=== PATIENT | female | born 1940 | race Caucasian/White ===

== ENCOUNTER → 2019-12-10 | Day surgery (SDC) | payer MEDICARE, BC ==
[2019-12-05 11:10] LABS: BASOPHILS # (AUTO) 0.1 (0.0-0.1); BASOPHILS % 1.3 % (0.0-1.0); EOSINOPHILS # (AUTO) 0.2 (0.0-0.4); EOSINOPHILS % 4.8 % (0.0-6.0); HEMATOCRIT 37.7 % (34.2-44.1); HEMOGLOBIN 12.5 g/dL (12.0-16.0); LYMPHOCYTES # (AUTO) 1.9 (1.0-3.2); LYMPHOCYTES % 42.6 % (18.0-39.1); MEAN CORPUSCULAR HEMOGLOBIN 30.7 pg (28-32); MEAN CORPUSCULAR HGB CONC 33.2 g/dL (31-35); MEAN CORPUSCULAR VOLUME 92.6 fL (81-99); MONOCYTES # (AUTO) 0.6 (0.2-0.8); MONOCYTES % 13.4 % (4.4-11.3); NEUTROPHILS # (AUTO) 1.7 (2.1-6.9); NEUTROPHILS % 37.9 % (38.7-80.0); PLATELET COUNT 166 x10e3/uL (140-360); RED BLOOD COUNT 4.07 x10e6/uL (3.6-5.1); RED CELL DISTRIBUTION WIDTH 13.6 % (11.7-14.4)
--- NOTE | 2019-12-05 11:54 | Diagnostic Imaging Report ---
EXAMINATION: CHEST 2 VIEWS INDICATION: Right carpal tunnel syndrome. Preop ^PREOP ^[id number] ^[id number] COMPARISON: None FINDINGS: TUBES and LINES: None. LUNGS: Lungs are well inflated. Chronic appearing change in the lungs. There is no evidence of pneumonia or pulmonary edema. PLEURA: No pleural effusion or pneumothorax. HEART AND MEDIASTINUM: The cardiomediastinal silhouette is unremarkable. BONES AND SOFT TISSUES: No acute osseous lesion. Soft tissues are unremarkable. UPPER ABDOMEN: No free air under the diaphragm. IMPRESSION: No acute thoracic abnormality. Signed by: Dr. Shelton Abdullahi M.D. on 12/05/2019 11:52 AM
[~2019-12-10] MED LIST: ACETAMINOPHEN 1000 MG/100 ML IV ONE; ADVIL100 MG PO; ALENDRONATE SOD70 MG PO; BUPIVACAINE HCL 0.5% INJ 30 ML VIAL INJ ONE; CEFAZOLIN SOD 1 GM/NS 50ML 50 ML IV ONE; CENTRUM SILVER PO; CITRACAL PO; DEXAMETHASONE SOD PHOS INJ 4 MG/ML VIAL ONE; ELIQUIS5 MG PO; FAMOTIDINE20 MG PO; GABAPENTIN100 MG PO; HYDROXYCHLOROQ200 MG PO; KETOROLAC TROMETHAMINE 30 MG/ML VIAL ONE; LEFLUNOMIDE20 MG PO; LIDOCAINE HCL 2% LOCAL INJ 5 ML SDV VIAL INJ ONE; METOPROLOL SUCC50 MG PO; MUPIROCIN 2% OINT 22 GM TUBE ONE; ONDANSETRON HCL INJ 2MG/ML 2ML 2 MG/ML VIAL ONE; ONDANSETRON ODT8 MG PEG; PRESERVISION T1 EACH PO; PROPOFOL IV EMULSION 10 MG/ML 20 ML VIAL ONE; SEVOFLURANE INHAL SOLN 250 ML PEN BTL ONE; SYNTHROID50 MCG PO; VESICARE5 MG PO; VIBERZI75 MG PO; VITAMIN D3 PO; [UNRECOGNIZED DRUG - OTHER] PO
--- OUTSIDE RECORDS SUMMARY | 2019-12-10 06:03 | XMS REPORT | Summary of Care ---
Author Author MONDAY NATALIE Herrera Unknown Address Unknown Phone Unavailable Care Team Providers Care Sales Representative Wire Rope Name Role Phone MondayFrederick, NATALIE Unavailable Unavailable MEG ALVES MD Unavailable Unavailable MONDAY NATALIE BEACH Unavailable Unavailable SO CHO MD Unavailable Unavailable Unavailable Unavailable Functional Status Name Dates Details Functional status health issues are not documented Status: Name Dates Details Cognitive status health issues are not documented Status: Problems Name Dates Details Carpal tunnel syndrome, right upper limb (354.0, G56.01) Status: Active 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, 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 Left foot drop (736.79, M21.372) Status: Active Neuropathic pain (729.2, M79.2) Status: Active Medications Name Dates Details PreserVision/Lutein Oral Capsule Active Multi Vitamin/Minerals Oral Tablet * Refills: 0 Active Citracal TABS * Refills: 0 Active Vitamin D 1000 UNIT TABS * Refills: 0 Active Advil 200 MG Oral Tablet * Refills: 0 Active Ondansetron 4 MG Oral Tablet Disintegrating * Refills: 0 Active Viberzi 75 MG Oral Tablet * Refills: 0 Active Hydroxychloroquine Sulfate 200 MG Oral Tablet * Refills: 0 Active Gabapentin 100 MG Oral Capsule TAKE 6 CAPSULE DAILY * Quantity: 180 Refills: 0 MONDAY NATALIE Herrera Active Leflunomide 20 MG Oral Tablet * Refills: 0 Active Metoprolol Succinate ER 100 MG Oral Tablet Extended Release 24 Hour * Refills: 0 Active Eliquis 5 MG Oral Tablet * Refills: 0 Active Synthroid 50 MCG Oral Tablet * Refills: 0 Active Solifenacin Succinate 10 MG Oral Tablet * Refills: 0 Active Famotidine 20 MG Oral Tablet * Refills: 0 Active Alendronate Sodium 70 MG Oral Tablet * Refills: 0 Active Diclofenac Sodium 1 % Transdermal Gel * Refills: 0 Active Centrum TABS * Refills: 0 Active Allergies and Adverse Reactions Name Dates Details codeine (Allergy) Status: Active methotrexate (Allergy) Status: Active morphine (Allergy) Status: Active Past Medical History Name Dates Details History of high cholesterol (V12.29, Z86.39) Status: Resolved History of High triglycerides (272.1, E78.1) Status: Resolved History of hypertension (V12.59, Z86.79) Status: Resolved History of memory loss (V11.9, Z87.898) Status: Resolved History of Migraine headache (346.90, G43.909) Status: Resolved History of neuropathy (V12.49, Z86.69) Status: Resolved History of osteopenia (V13.59, Z87.39) Status: Resolved Procedures Procedure Dates Details [QLH] VITAMIN B12 Date: 04-Dec-2019 [QLH] FOLATE, SERUM Date: 04-Dec-2019 [H] Protein Electrophoresis Date: 04-Dec-2019 History of Carpal tunnel surgery Completed History of Cataract Surgery Completed History of Back Surgery Completed History of Complete Colonoscopy Completed History of Hysterectomy Completed Immunization Name Dates Details Immunizations not documented Family History Name Dates Details Family history of High blood cholesterol level (272.0, E78.00) Comments: Other Status: Active Family history of High triglycerides (272.1, E78.1) Comments: Other Status: Active Family history of malignant neoplasm (V16.9, Z80.9) Comments: Other Status: Active Family history of cardiac disorder (V17.49, Z82.49) Comments: Other Status: Active Family history of migraine headaches (V17.2, Z82.0) Comments: Other Status: Active Family history of epilepsy (V17.2, Z82.0) Comments: Other Status: Active Family history of hypertension (V17.49, Z82.49) Comments: Other Status: Active Social History Name Dates Details - Status: Name Dates Details Never smoked tobacco (finding) Vital Signs Date Test Result Details [id number] Systolic blood pressure 174 mm[Hg] Status: Comments: Location: LUE; Position: Sitting Diastolic blood pressure 75 mm[Hg] Status: Comments: Location: LUE; Position: Sitting Body height 63 in Status: Weight 149.6 lb Status: Body mass index (BMI) [Ratio] 26.5 kg/m2 Status: Body surface area Derived from formula 1.71 m2 Status: Body temperature 96.8 f Status: Comments: Method: Oral Heart Rate 65 /min Status: Comments: Location: R Brachial Artery; Results Date Description Value Details Results not documented Plan of Care Name Dates Details Planned Observations Planned Goals not documented Planned Encounters Appointment; NATALIE OCAMPO M.D. On: 01-Jun-2020 11:30 Interventions Provided Medication Changes* Gabapentin 100 MG Oral Capsule - Renew Labs/Procedures/Imaging* [H] Protein Electrophoresis; To Be Done: 04 Dec 2019 * [QLH] FOLATE, SERUM; To Be Done: 04 Dec 2019 * [QLH] VITAMIN B12; To Be Done: 04 Dec 2019 Instructions Name Dates Details Instructions not documented Encounters Appointment; NATALIE OCAMPO M.D. Encounter Diagnosis: Problem not documented On: 23-Oct-2019 11:00 Appointment; RONNIE BARBA M.D. Encounter Diagnosis: Problem not documented On: 23-Oct-2019 13:00 Appointment; NATALIE OCAMPO M.D. Encounter Diagnosis: Problem not documented On: 04-Dec-2019 12:30
--- OUTSIDE RECORDS SUMMARY | 2019-12-10 06:03 | XMS REPORT | Summary of Care ---
Author Author MONDAY Sharon, NATALIE Manriquez Unknown Address Unknown Phone Unavailable Care Team Providers Care Family Service Caseworker Name Role Phone Kelly Rivera M.A. Unavailable Unavailable MONDAY Sharon, NATALIE Unavailable Unavailable [place], MEG MCKAY Unavailable Unavailable MONDAY NATALIE BEACH Unavailable Unavailable [place], SO Mazariegos Unavailable Unavailable Unavailable Unavailable Functional Status Name [...] MG Oral Tablet * Refills: 0 Active Meclizine HCl TABS * Refills: 0 Active Ondansetron 4 MG Oral Tablet Disintegrating * Refills: 0 Active Tylenol with Codeine #3 300-30 MG Oral Tablet * Refills: 0 Active Viberzi 75 MG Oral Tablet * Refills: 0 Active Oxybutynin Chloride 5 MG Oral Tablet * Refills: 0 Active Eliquis 2.5 MG Oral Tablet * Refills: 0 Active Synthroid 112 MCG Oral Tablet * Refills: 0 Active Hydroxychloroquine Sulfate 200 MG Oral Tablet * Refills: 0 Active predniSONE 20 MG Oral Tablet * Refills: 0 Active Gabapentin 100 MG Oral Capsule TAKE 6 CAPSULE DAILY * Quantity: 180 Refills: 0 Monday.NATALIE Bryant Active Omeprazole 40 MG Oral Capsule Delayed Release * Refills: 0 Active Leflunomide 20 MG Oral Tablet * Refills: 0 Active Metoprolol Succinate ER 100 MG Oral Tablet Extended Release 24 Hour * Refills: 0 Active Allergies and Adverse [...] Z87.39) Status: Resolved Procedures Procedure Dates Details History of Carpal tunnel surgery Completed History [...] Details - Status: Name Dates Details Never smoker Vital Signs Date Test Result Details [id number] BP Systolic 151 mm[Hg] Status: Comments: Location: LLE; Position: Sitting BP Diastolic 80 mm[Hg] Status: Comments: Location: LLE; Position: Sitting Height 63 in Status: Weight 152 lb Status: Body Mass Index Calculated 26.93 kg/m2 Status: Body Surface Area Calculated 1.72 m2 Status: Temperature 97.7 f Status: Heart Rate 65 /min Status: Results Date Description Value Details Results not documented Plan of Care Name Dates Details Planned Observations Planned Goals not documented Planned Encounters Orthopedics Referral Appointment; NATALIE OCAMPO M.D. On: 04-Dec-2019 12:30 Interventions Provided Supplies* Brace; To Be Done: 25 Oct 2019 Instructions Name Dates Details Instructions not documented Encounters Appointment; NATALIE OCAMPO M.D. Encounter Diagnosis: Problem not documented On: 23-Oct-2019 11:00 Appointment; RONNIE BARBA M.D. Encounter Diagnosis: Problem not documented On: 23-Oct-2019 13:00
--- OUTSIDE RECORDS SUMMARY | 2019-12-10 06:03 | XMS REPORT | Summary of Care ---
Author Author Kelly Rivera M.A. Organization Unknown Address Unknown Phone Unavailable Care Team Providers Care Wall Insulation Sprayer Name Role Phone Kelly Rivera M.A. Unavailable Unavailable MONDAY M.Manny, NATALIE Unavailable Unavailable [place], MEG MCKAY [...] DAILY * Quantity: 180 Refills: 0 MONDAY M.D., NATALIE Active Omeprazole 40 MG Oral Capsule Delayed [...] smoker Vital Signs Date Test Result Details :43 BP Systolic 151 mm[Hg] Status: Comments: Location: [...] Appointment; NATALIE OCAMPO M.D. On: 04-Dec-2019 12:30 Instructions Name Dates Details Instructions not documented Encounters Appointment; NATALIE OCAMPO M.D. Encounter Diagnosis: Problem not documented On: 23-Oct-2019 11:00 Appointment; RONNIE BARBA M.D. Encounter Diagnosis: Problem not documented On: 23-Oct-2019 13:00
--- OUTSIDE RECORDS SUMMARY | 2019-12-10 06:03 | XMS REPORT ---
Author Author [facility] Address Unknown Phone Unavailable Care Team Providers Care Tugboat Mate Name Role Phone ANASTACIO NATH Unavailable Unavailable Problems This patient has no known problems. Allergies, Adverse Reactions, Alerts This patient has no known allergies or adverse reactions. Medications This patient has no known medications. Encounters Start Date/Time End Date/Time Encounter Type Admission Type Attending Clinicians Care Facility Care Department Encounter ID 2019-05-01 12:26:00 2019-05-01 12:26:00 Outpatient [facility] [id number] Results Test Description Test Time Test Comments Text Results Atomic Results Result Comments CHEST 2 VIEWS 2019-12-05 11:51:00 [place] [id number] Patient Name: DANIELA CID MR #: [id number] : 1940 Age/Sex: 79/F Req #: [id number] Adm Physician: Ordered by: ANASTACIO NATH MD Report #: [id number] Location: OR Room/Bed: Procedure: [id number] DX/CHEST 2 VIEWS Exam Date: 12/05/19 Exam Time: 1124 REPORT STATUS: Signed EXAMINATION: CHEST 2 VIEWS INDICATION: Right carpal tunnel syndrome. Preop PREOP [id number] COMPARISON: None FINDINGS: TUBES and LINES: None. LUNGS: Lungs are well inflated. Chronic appearing change in the lungs. There is no evidence of pneumonia or pulmonary edema. PLEURA: No pleural effusion or pneumothorax. HEART AND MEDIASTINUM: The cardiomediastinal silhouette is unremarkable. BONES AND SOFT TISSUES: No acute osseous lesion. Soft tissues are unremarkable. UPPER ABDOMEN: No free air under the diaphragm. IMPRESSION: No acute thoracic abnormality. Signed by: Dr. Shelton Abdullahi M.D. on 12/05/2019 11:52 AM Dictated By: SHELTON ABDULLAHI MD, MD 1152 Transcribed By: LYDIA on 12/05/19 1152 COPY TO: ANASTACIO NATH MD SCR MAMM BILATERAL POOJA CAD DIGITAL 2019-07-29 14:45:57 - SCR MAMM BILATERAL POOJA CAD DIGITALBILATERAL DIGITAL SCREENING MAMMOGRAM 3D/2D WITH CAD: 07/12/2019CLINICAL: Asymptomatic. Digital breast tomosynthesis was performed in addition to routine CC and MLO views. Current mammographic images were evaluated by either a Reelio M-Vu or a [employer] ImageChecker CAD (computer aided detection system). Comparison is made to exam dated 10/19/2016 mammogram - [facility]. The tissue of both breasts is heterogeneously dense. This may lower the sensitivity of mammography. No suspicious mass, architectural distortion, malignant type calcification, or lymph node abnormality detected. Breast architecture is stable compared to prior exams.IMPRESSION: NEGATIVEThere is no mammographic evidence of malignancy. Resume annual screening mammography in one year. Merna Larkin M.D. yadennis/[email or web address]:07/29/2019 14:45:57 copy to: Solitario Rogers MD, ph: [phone], fax: [phone] Technologist: Patria DIAZ, [facility]-FWletter sent: BIRADS 1-2 Normal Mammogram BI-RADS: 1 Negative
--- OUTSIDE RECORDS SUMMARY | 2019-12-10 06:03 | XMS REPORT | Summary of Care ---
Author Author MONDAY NATALIE Herrera Unknown Address Unknown Phone Unavailable Care Team Providers Care Shoe Fitter Name Role Phone MondayFrederick, NATALIE Unavailable Unavailable [...] (finding) Vital Signs Date Test Result Details [id number] Systolic blood pressure 174 mm[Hg] Status: Comments: [...]
--- OUTSIDE RECORDS SUMMARY | 2019-12-10 06:03 | XMS REPORT | Summary of Care ---
Author Author MONDAY NATALIE Herrera Unknown Address Unknown Phone Unavailable Care Team Providers Care Bilingual Teacher Name Role Phone MONDAY Sharon, NATALIE Unavailable Unavailable MEG ALVES MD Unavailable [...] Medications Name Dates Details PreserVision/Lutein Oral Capsule M.A. Active Multi Vitamin/Minerals Oral Tablet * Refills: 0 M.A. Active Citracal TABS * Refills: 0 M.A. Active Vitamin D 1000 UNIT TABS * Refills: 0 M.A. Active Advil 200 MG Oral Tablet * Refills: 0 M.A. Active Ondansetron 4 MG Oral Tablet Disintegrating * Refills: 0 M.A. Active Viberzi 75 MG Oral Tablet * Refills: 0 M.A. Active Hydroxychloroquine Sulfate 200 MG Oral Tablet * Refills: 0 M.A. Active Gabapentin 100 MG Oral Capsule TAKE 6 CAPSULE DAILY * Quantity: 180 Refills: 0 MONDAY NATALIE Herrera Active Leflunomide 20 MG Oral Tablet * Refills: 0 M.A. Active Metoprolol Succinate ER 100 MG Oral Tablet Extended Release 24 Hour * Refills: 0 M.A. Active Eliquis 5 MG Oral Tablet * Refills: 0 M.A. Active Synthroid 50 MCG Oral Tablet * Refills: 0 M.A. Active Solifenacin Succinate 10 MG Oral Tablet * Refills: 0 M.A. Active Famotidine 20 MG Oral Tablet * Refills: 0 M.A. Active Alendronate Sodium 70 MG Oral Tablet * Refills: 0 M.A. Active Diclofenac Sodium 1 % Transdermal Gel * Refills: 0 M.A. Active Centrum TABS * Refills: 0 M.A. Active Allergies and Adverse Reactions Name Dates [...] (finding) Vital Signs Date Test Result Details [id number] Systolic blood pressure 174 mm[Hg] Status: Comments: Location: LUE; Position: Sitting Diastolic blood pressure 75 mm[Hg] Status: Comments: Location: E; Position: Sitting Body height 63 in Status: Weight 149.6 lb Status: Body mass index (BMI) [Ratio] 26.5 kg/m2 Status: Body surface area Derived from formula 1.71 m2 Status: Body temperature 96.8 f Status: Comments: Method: Oral Heart Rate 65 /min Status: Comments: Location: R Brachial Artery; Results Date Description Value Details :36 [QL] PROTEIN, TOTAL AND PROTEIN ELECTROPHORESIS PROTEIN, TOTAL 6.5 g/dl (Normal) Range: 6.1-8.1 Comments: SPECIMEN RECEIVED DATE AND TIME: ALBUMIN 3.9 g/dl (Normal) Range: 3.8-4.8 [id number] 0.2 g/dl (Normal) Range: 0.2-0.3 [id number]-5-[id number] 0.8 g/dl (Normal) Range: 0.5-0.9 BETA 1 GLOBULIN 0.4 g/dl (Normal) Range: 0.4-0.6 BETA 2 GLOBULIN 0.4 g/dl (Normal) Range: 0.2-0.5 GAMMA GLOBULINS 0.7 g/dl (Below low threshold) Range: 0.8-1.7 INTERPRETATION Comments: Consistent with hypogammaglobulinemia. Serum free light chains or urine immunofixation should be considered if plasma cell dyscrasias are a possible clinical diagnosis. SPECIMEN RECEIVED DATE AND TIME: :36 [QL] VITAMIN B12/FOLATE, SERUM PANEL Comments: REPORT COMMENT:FASTING:NO VITAMIN B12 469 pg/ml (Normal) Range: 200-1100 FOLATE, SERUM >24.0 ng/ml (Normal) Comments: Reference Range Low: <3.4 Borderline: 3.4- 5.4 Normal: >5.4 SPECIMEN RECEIVED DATE AND TIME: Plan of Care Name Dates Details Planned Observations Planned Goals not documented Planned Encounters Appointment; TERRENCENATALIE BARTON M.D. On: 01-Jun-2020 11:30 Instructions Name Dates Details Instructions not documented Encounters Appointment; TERRENCENATALIE BARTON M.D. Encounter Diagnosis: Problem not documented On: 23-Oct-2019 11:00 Appointment; RONNIE BARBA M.D. Encounter Diagnosis: Problem not documented On: 23-Oct-2019 13:00 Appointment; TERRENCENATALIE BARTON M.D. Encounter Diagnosis: Problem not documented On: 04-Dec-2019 12:30
--- OUTSIDE RECORDS SUMMARY | 2019-12-10 06:04 | XMS REPORT | Summary of Care ---
Author Author Kelly Rivera M.A. Organization Unknown Address Unknown Phone Unavailable Care Team Providers Care Script Developer Name Role Phone Kelly Rivera M.A. Unavailable [...] CAPSULE DAILY * Quantity: 180 Refills: 0 Monday.D.NATALIE Active Leflunomide 20 MG Oral Tablet * [...] (finding) Vital Signs Date Test Result Details [id number] Systolic blood pressure 174 mm[Hg] Status: Comments: [...] TIME: ALBUMIN 3.9 g/dl (Normal) Range: 3.8-4.8 [id number]-7-[id number] 0.2 g/dl (Normal) Range: 0.2-0.3 CZTZI-8-[id number] 0.8 g/dl (Normal) Range: 0.5-0.9 BETA 1 [...] OCAMPO M.D. On: 01-Jun-2020 11:30 Interventions Provided Supplies* Brace; Done: 25 Oct 2019 Instructions Name Dates Details Instructions not documented Encounters Appointment; NATALIE OCAMPO M.D. Encounter Diagnosis: Problem not documented On: 23-Oct-2019 11:00 Appointment; RONNIE BARBA M.D. Encounter Diagnosis: Problem not documented On: 23-Oct-2019 13:00 Appointment; NATALIE OCAMPO M.D. Encounter Diagnosis: Problem not documented On: 04-Dec-2019 12:30
[2019-12-10 08:35] VITALS: BP 126/61
--- NOTE | 2019-12-10 13:51 | Operative Report ---
DATE OF PROCEDURE: 12/10/2019 SURGEON: Arvind Goldstein MD PREOPERATIVE DIAGNOSIS: Right hand, carpal tunnel syndrome. POSTOPERATIVE DIAGNOSES: 1. Right hand, carpal tunnel syndrome. 2. Flexor tenosynovitis, right wrist. PROCEDURE: 1. Right hand, open carpal tunnel release. 2. Flexor tenosynovectomy, right wrist. ANESTHESIA: General. HISTORY: The patient is a 79-year-old with EMG-proven right hand carpal tunnel syndrome. Risks, benefits and alternatives of treatment were discussed with the patient. The patient is prepared to undergo the procedure as outlined. DESCRIPTION OF PROCEDURE: The patient was brought to the operating theater. After the induction of adequate general inhalation anesthesia, the patient was prepped and draped in the supine position. A time out was performed by the entire operating room team. A 2.5 cm incision was marked out in the intrathenar space. The right upper extremity was exsanguinated, and a tourniquet was inflated to a pressure of 250 mmHg. The incision was made through the skin and subcutaneous tissues and all venous tributaries were controlled with bipolar cautery. The incision was deepened through the palmar fascia until the transverse carpal ligament was identified. The ligament was sharply sectioned, taking care to protect and preserve the median nerve underlying it. After the complete width of the ligament had been transected, the distal volar forearm fascia was divided under direct view. Proliferative flexor tenosynovium was noticed to encompass the median nerve and this was radically excised. After performing this maneuver, the nerve was noted to lie adequately decompressed. The wound was copiously irrigated with bacteriostatic saline, closed with 5-0 nylon in an interrupted horizontal mattress fashion. A Marcaine field block was performed at the operative site. Tourniquet was deflated. All of the fingers pinked up nicely and a sterile bulking conforming bandage was applied to the hand and the wrist. A fiberglass splint was fashioned to maintain the wrist in a modest amount of extension. This was held in place with a loosely wrapped Elier wrap. The patient tolerated the procedure well and was brought to the recovery room in satisfactory condition and discharged with a postoperative instruction sheet as well as a followup appointment. MD SHELIA Rodriguez/MODL /[id number]
== END | disposition home or self-care (01) ==
LOC: OR 05:42
PROVIDERS: ATTEND Plastic Surgery
DX: M65.831 Other synovitis and tenosynovitis, right forearm (principal); G56.01 Carpal tunnel syndrome, right upper limb; I48.0 Paroxysmal atrial fibrillation; E03.9 Hypothyroidism, unspecified; G57.93 Unspecified mononeuropathy of bilateral lower limbs; M06.9 Rheumatoid arthritis, unspecified; K21.9 Gastro-esophageal reflux disease without esophagitis; Z88.6 Allergy status to analgesic agent; Z88.8 Allergy status to other drugs, medicaments and biological substances
CPT/HCPCS: 25115; 36415; 71046; 85025; 93005; J0131; J0690; J1100; J1885; J2001; J2405; J2704